=== PATIENT | female | born 1950 | race Caucasian/White ===

== ENCOUNTER 2016-11-05 15:29 | Emergency (ER) | payer MEDICARE, OTHER ==
--- OUTSIDE RECORDS SUMMARY | 2016-11-05 16:22 | XMS REPORT | Continuity of Care Document ---
:1950 Author Organization [place] [address] Care Team Providers Name Role Phone Marek Margaret M Primary Care Provider [phone] Source Comments This disclosure is being made pursuant to the mGenerator program and maynot contain all information available regarding this patient.[facility] Active Allergies and Adverse Reactions Not on File Current Medications Be aware that medications may not be up to date as of this document. Alwaysverify current medications with the patient. Not on file Active Problems Not on file Most Recent Encounters Date Type Specialty Providers Description 10/20/2016 Data Import Social History Tobacco Use Types Packs/Day Years Used Date Never Assessed Plan of Care Health Maintenance Due Date Last Done Comments Tetanus/Pertussis (1 - Tdap) 1969 Colonoscopy 2000 Mammogram 2000 Well Adult Visit 2000 Zoster Vaccine 60+ 2010 Bone Density 2015 Pneumococcal Low/Medium Risk 65+ (1 of 2 - PCV13) 2015 Influenza Immunization (#1) 2016 Results from Last 3 Months Not on file
[2016-11-05] MEDS ORDERED: ONDANSETRON HCL/PF 2 MG/ML VIAL IV ONE (16:26)
[2016-11-05 16:31] LABS: Hematocrit 48.1 % (37.0-47.0); Hemoglobin 15.8 gm/dL (12.5-16.0); Mean Cell Volume 85.4 fl (78-100); Mean Corpuscular Hemoglobin 28.1 pg (27-31); Mean Corpuscular Hgb Conc 32.8 g/dl (32-36); Mean Platelet Volume 9.9 fl (6.0-9.5); Neutrophil # 3.9 K/mm3 (1.3-6.0); Neutrophil % 59.1 % (42-75.0); Platelet Count 238 K/mm3 (150-450); Red Blood Count 5.63 M/mm3 (4.2-5.4); Red Cell Distribution Width 15.4 % (11.5-14.0); White Blood Count 6.6 K/mm3 (4.0-10.5)
[2016-11-05] MEDS: NORMAL SALINE 1,000 ML IV ONE (16:38)
--- NOTE | 2016-11-05 16:49 | ERNOTE ---
Medical Problem HPI - Narrative Date of Service: 11/05/16 - General Chief Complaint: Nausea/Vomiting Time Seen by Provider: 11/05/16 16:09 Source: patient, family - Immun/Allergies/Home Medications Immunizations: IMMUNIZATION HX Immunizations Up to Date Yes History of Influenza Vaccine Yes Hx Pneumococcal Vaccination Yes Allergies/Adverse Reactions: Allergies codeine [Codeine] Allergy (Severe, Verified 11/05/16 16:41) Penicillins Allergy (Severe, Verified 11/05/16 16:41) Hives Home Medications: HOME MEDICATIONS Aspirin [Aspirin Chewable] 81 mg PO DAILY 10/19/12 [Last Taken Unknown] Atorvastatin Calcium [Lipitor] 20 mg PO DAILY 10/19/12 [Last Taken Unknown] Imipramine HCl [Tofranil] 25 mg PO DAILY 10/19/12 [Last Taken Unknown] Pantoprazole Sodium [Protonix] 40 mg PO DAILY 10/19/12 [Last Taken Unknown] amLODIPine BESYLATE [Norvasc] 10 mg PO DAILY 10/19/12 [Last Taken Unknown] Ondansetron HCl [Zofran] 4 mg PO Q6H #7 tablet 11/05/16 [Last Taken Unknown] - History of Present History Narrative: NAUSEA VOMITING AND DIARRHEA STARTING 2 DAYS AGO. VOMITING ABOUT 12 TIMES SINCE THEN BUT NONE TODAY THOUGH IS STILL NAUSEATED. SHE HAS HAD ABOUT 20 EPISODES OF WATERY DIARRHEA INCLUDING 6 TODAY. IS NOT SICK AND SHE HAS NO KNOWN CONTACTS. THEY HAVE EATEN THE SAME FOOD. SHE C/O SOME RIGHT UPPER QUADRANT ABD PAIN. SHE THINKS SHE MAY HAVE HAD A FEVER 2 DAYS AGO. SHE DENIES UTI SX AND IN FACT HAS NOT BEEN URINATING MUCH. SHE DID KEEP DOWN A COUPLE OF CRACKERS AND SOME WATER TODAY. Review of Systems - Review of Systems Constitutional: Present: See HPI EYE: Present: no symptoms reported ENT: Present: no symptoms reported Respiratory: Present: no symptoms reported Cardiology: Present: no symptoms reported Gastrointestinal/Abdominal: Present: See HPI, nausea, vomiting, diarrhea, abdominal pain, eating less, drinking less Genitourinary: Present: no symptoms reported Musculoskeletal: Present: no symptoms reported Skin: Present: no symptoms reported Endocrine: Present: no symptoms reported Hematologic/Lymphatic: Present: no symptoms reported Psych: Present: no symptoms reported All Other Systems: All systems neg except as marked - Patient's Past Medical History Patient History - Medical: No pertinent hx, Other - 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 Patient History - Cardiac/Respiratory: Hypertension Patient History - Cancer: No Hx of Cancer Patient History - Surgical Procedures: Appendectomy, Cholecystectomy, Hysterectomy, Other - EX LAP Patient History - Other: None LMP (females 10-50): Menopausal - Social History Living Situations: home Abuse History: No History of abuse Psych History: No pertinent hx Smoking Status: Current every day smoker Have you smoked in the past 12 months: Yes Alcohol Use: none Drug Use: none - Immunizations Immunizations Up to Date: Yes Hx Pneumococcal Vaccination: Yes History of Influenza Vaccine: Yes Physical Exam - Physical Exam General Appearance: Present: alert, mild distress Eye Exam: Normal inspection: bilateral Ears, Nose, Throat: Present: dry mucous membranes Respiratory: Present: no respiratory distress, normal breath sounds, no accessory muscle use, chest nontender, lungs clear Cardiovascular/Chest: Present: regular rate, rhythm, no murmur, normal peripheral pulses Gastrointestinal/Abdominal: Present: nontender, nondistended, soft, no organomegaly, other - INCREASED BOWEL SOUNDS, HYPERACTIVE. Back Exam: Present: normal inspection, normal range of motion, no vertebral tenderness, CVA tenderness (L) - VERY MILD. Neurological Exam: Present: alert, oriented, normal mood/affect, no motor/ sensory deficits Skin Exam: Present: normal color ED Progress - Results and Orders Patient's Lab Results:: I have reviewed the patient's lab results. Results and Orders: CBC = NL, CMP = BUN OF 28. LFTS ONLY MILDLY ELEVATED WITH NORMAL T. BILI. - Vital Signs Vital Signs: Vital Signs 11/05/16 15:57 Temperature 36.9 C Pulse Rate 96 Respiratory 16 Rate Blood Pressure 150/134 O2 Sat by Pulse 96 Oximetry - EKG EKG: NSR EKG read: Interp. by me - Progress/Reassessment Chief Complaint: Nausea/Vomiting Departure - Departure Clinical Impression: Gastroenteritis Disposition: Home Follow Up Needed Condition: Fair Instructions: Viral Gastroenteritis, Adult, [id number] Additional Instructions: CLEAR LIQUID AND LIGHT DIET UNTIL NO MORE DIARRHEA. ADVANCE DIET SLOWLY BACK TO YOUR NORMAL DIET. GOOD HYGEINE TO PREVENT SPREAD TO OTHERS. IF THE STOOL CULTURE SHOWS THAT THERE IS A MORE SERIOUS INFECTION THAN VIRAL , WE WILL CALL YOU. Prescriptions: Ondansetron HCl [Zofran] 4 mg PO Q6H #7 tablet
[2016-11-05 16:50] LABS: Albumin * 3.8 gm/dl (3.4-5.0); Anion Gap 16.2 mmol/L (6.8-13.8); BUN/Creatinine Ratio 28.3 (9.0-21.6); Bilirubin, Total 0.9 mg/dL (0.0-1.1); Ca. Corrected For Albumin 8.6 mg/dL (8.4-10.2); Calcium * 8.8 mg/dL (7.9-10.9); Carbon Dioxide 23.2 mmol/L (24-32.6); Potassium 3.4 mmol/L (3.4-4.6); Total Protein 7.5 gm/dL (6.2-8.2)
[2016-11-05 17:30] LABS: Urine Bilirubin 1 mg/dl (NEGATIVE); Urine Blood 25 /ul (NEGATIVE); Urine Ketone 15 mg/dL (NEGATIVE); Urine Nitrite Negative (NEGATIVE); Urine Protein 15 mg/dL (NEGATIVE); Urine Specific Gravity >=1.030 SP.GR. (1.005-1.010); Urine Urobilinogen Normal (NORMAL)
[2016-11-05 17:36] LABS: Urine Appearance Clear; Urine Color Yellow
[2016-11-05 17:37] LABS: Urine Bacteria None Seen; Urine RBC 0-5 /hpf (0-5); Urine WBC None Seen /hpf (0-5)
[2016-11-05 19:52] VITALS: BP 147/78
== END 2016-11-05 20:05 | disposition home or self-care (01) ==
LOC: ER 15:29
DX: K52.9 Noninfective gastroenteritis and colitis, unspecified (principal); F17.200 Nicotine dependence, unspecified, uncomplicated; I10 Essential (primary) hypertension